=== PATIENT | female | born 1980 | race Caucasian/White ===

== ENCOUNTER 2019-10-22 01:28 | Emergency (ER) | payer MEDICAID ==
[~2019-10-22] VITALS: Ht 167.6 cm; Wt 53.1 kg
[~2019-10-22 01:28] MED LIST: BACO TOP; CLEOCIN HCL150 MG PO; PLAQUENIL200 MG PO; VALTREX PO
[2019-10-22 01:38] VITALS: BP 102/58; Ht 167.6 cm; Wt 53.1 kg
== END 2019-10-22 02:41 | disposition home or self-care (01) ==
LOC: ED 01:28
DX: A49.02 Methicillin resistant Staphylococcus aureus infection, unspecified site (principal); Z88.0 Allergy status to penicillin; Z88.8 Allergy status to other drugs, medicaments and biological substances
CPT/HCPCS: J0696; J2001

== ENCOUNTER 2019-11-03 01:37 | Emergency (ER) | payer MEDICAID ==
[~2019-11-03] VITALS: Ht 167.6 cm; Wt 52.6 kg
[2019-11-03 01:50] VITALS: Ht 167.6 cm; Wt 52.6 kg
[2019-11-03 05:19] VITALS: BP 100/40
== END 2019-11-03 05:19 | disposition home or self-care (01) ==
LOC: ED 01:37
DX: B95.62 Methicillin resistant Staphylococcus aureus infection as the cause of diseases classified elsewhere (principal); I25.2 Old myocardial infarction; M32.9 Systemic lupus erythematosus, unspecified; Z88.0 Allergy status to penicillin; Z88.8 Allergy status to other drugs, medicaments and biological substances
CPT/HCPCS: J0696; J3370; J7050; J7060

== ENCOUNTER 2019-11-22 22:44 | Emergency (ER) | payer MEDICAID ==
[~2019-11-22] VITALS: Ht 165.1 cm; Wt 52.2 kg
[2019-11-22 22:51] VITALS: Ht 165.1 cm; Wt 52.2 kg
[2019-11-23 03:22] VITALS: BP 107/83
== END 2019-11-23 03:22 | disposition home or self-care (01) ==
LOC: ED 22:44
DX: A49.02 Methicillin resistant Staphylococcus aureus infection, unspecified site (principal); I25.2 Old myocardial infarction; Z88.0 Allergy status to penicillin; Z88.8 Allergy status to other drugs, medicaments and biological substances
CPT/HCPCS: J0696; J3370

== ENCOUNTER 2019-11-29 01:07 | Emergency (ER) | payer MEDICAID ==
[~2019-11-29] VITALS: Ht 160 cm; Wt 52.2 kg
[2019-11-29 01:20] VITALS: Ht 160 cm; Wt 52.2 kg
[2019-11-29 04:31] VITALS: BP 95/52
== END 2019-11-29 04:31 | disposition home or self-care (01) ==
LOC: ED 01:07
DX: A49.02 Methicillin resistant Staphylococcus aureus infection, unspecified site (principal); L03.211 Cellulitis of face; I25.2 Old myocardial infarction; M32.9 Systemic lupus erythematosus, unspecified; Z88.0 Allergy status to penicillin; Z88.8 Allergy status to other drugs, medicaments and biological substances
CPT/HCPCS: J0696; J3370; J7050; J7060